=== PATIENT | female | born 1980 | race Hispanic/Latino ===

== ENCOUNTER → 2018-11-26 | Outpatient (CLI) | payer BC | END | disposition home or self-care (01) | LOC: SHCH 13:57 | PROVIDERS: ATTEND Internal Medicine Cardiovascular Disease | DX: O26.892 Other specified pregnancy related conditions, second trimester (principal); O09.92 Supervision of high risk pregnancy, unspecified, second trimester; R06.09 Other forms of dyspnea; Q25.1 Coarctation of aorta; Z3A.20 20 weeks gestation of pregnancy | CPT/HCPCS: 93306 ==